=== PATIENT | female | born 1980 | race Caucasian/White ===

== ENCOUNTER 2017-02-17 19:28 | Emergency (ER) | payer BC ==
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
[2017-02-17] MEDS ORDERED: ACETAMINOPHEN 325 MG TABLET PO STA (20:41)
[2017-02-17] MEDS ORDERED: ACETAMINOPHEN 325 MG TABLET PO ONE (21:05)
[2017-02-17 21:10] VITALS: BP 115/72
== END 2017-02-17 21:10 | disposition home or self-care (01) ==
LOC: ED 19:28
DX: S16.1XXA Strain of muscle, fascia and tendon at neck level, initial encounter (principal); V43.52XA Car driver injured in collision with other type car in traffic accident, initial encounter; Y92.488 Other paved roadways as the place of occurrence of the external cause
CPT/HCPCS: 99283; A9270